=== PATIENT | female | born 2005 | race Caucasian/White ===

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

== ENCOUNTER 2023-03-07 17:00 | Emergency (ER) | payer OTHER, SELFPAY ==
[2023-03-07 17:31] VITALS: BP 98/62; PULSE 95; RESP 18; TEMP 37.2; O2SAT 100; BMI 18.2
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
[2023-03-07] MEDS: Acetaminophen 325 MG TABLET 975 MG PO (19:33)
--- NOTE | 2023-03-07 19:43 | PC.NURSE ---
lac on back of head closed by MD with two dinesh. tylenol given for pain
== END 2023-03-07 20:04 | disposition home or self-care (01) ==
PROVIDERS: Emergency Provider Emergency Medicine
DX: S01.01XA Laceration without foreign body of scalp, initial encounter (principal); W22.8XXA Striking against or struck by other objects, initial encounter; Y93.89 Activity, other specified; Y92.9 Unspecified place or not applicable; Y99.9 Unspecified external cause status
CPT/HCPCS: 12001; 99283; 99284

== ENCOUNTER 2023-05-14 15:38 | Emergency (ER) | payer OTHER, SELFPAY ==
--- NOTE | ~2023-05-14 | US_ITS ---
EXAMINATION: US OBSTETRICAL ULTRASOUND CLINICAL INFORMATION: Lower abdominal pain. 9 weeks . COMPARISON: None available. LMP: 03/08/2023. Gestational age by maternal dates is 9 weeks 4 days. Estimated date of delivery by maternal dates is 12/13/2023. TECHNIQUE: Transabdominal first trimester OB ultrasound FINDINGS: There is a single intrauterine gestational sac with visible yolk sac, embryo/fetus, and cardiac activity. There is no significant subchorionic hemorrhage or hematoma. HR: 170 beats per minute. CRL (crown rump length): 2.7 cm (9 weeks 4 days +/- 4 days). DAPHNE (estimated date of delivery): 12/13/2023 +/- 4 days. MATERNAL ADNEXA: The right maternal ovary measures 2.7 x 1.3 x 1.6 cm. The left maternal ovary measures 2.9 x 2.7 x 1.7 cm. Small 1.5 cm left ovarian cyst. There is no significant maternal adnexal mass. No maternal pelvic ascites. US/US OB <= 14 weeks fetus IMPRESSION: 1. Single intrauterine gestation with ultrasound gestational age of 9 weeks 4 days +/- 4 days. 2. Estimated date of delivery is 12/13/2023 +/- 4 days. 3. No maternal adnexal mass or pelvic ascites.
[2023-05-14 15:47] VITALS: BP 103/62; PULSE 83; RESP 16; TEMP 36.2; BMI 19.2
--- NOTE | 2023-05-14 15:47 | ED_ITS ---
HPI - General Adult General Chief complaint: OB Stated complaint: with abd pain Time Seen by Provider: 05/14/23 16:07 Source: patient Mode of arrival: ambulatory Limitations: no limitations History of Present Illness HPI narrative: Patient is a 17 year old assigned female at with a history of previous high risk , presenting to the emergency department today with lower abdominal pain, nausea, and being approximately 9 weeks . Patient states that over the last 4 days she has had intermittent lower abdominal pain that almost felt more pelvic in nature and nausea. Patient states that she is but has not yet seen her OBGYN. Patient denies any dizziness, lightheadedness, vomiting, fever, chills, blurry vision, double vision, loss of vision, chest pain, difficulty breathing, shortness of breath, back pain, night sweats, pain with urination, increased urinary frequency, increased urinary urgency, blood in her urine or stool, vaginal bleeding, vaginal discharge, syncope or a near syncopal episode, recent trauma or falls, bowel incontinence, bladder incontinence, bowel retention, bladder retention, or any other complaints at this time. Onset (ago): day(s) Location: abdomen Radiation: non-radiation Severity: mild Severity scale (1-10): 3 Pain Consistency: intermittent Relieving factors: none Exacerbating factors: none Associated symptoms: denies other symptoms and nausea/vomiting Treatments prior to arrival: none Related Data Previous Rx's Medication Instructions Recorded metronidazole 500 mg tablet 500 mg PO BID 7 days #14 tabs 05/17/23 Allergies Allergy/AdvReac Type Severity Reaction Status Date / Time No Known Allergies Allergy Verified 05/14/23 15:53 [No Known Allergies*] Review of Systems 2 Constitutional: Constitutional: Reports no additional constitutional complaints, Denies chills, Denies fever(s) and Denies night sweats Eyes: Eyes: Reports no additional eye complaints, Denies blurry vision, Denies change in vision, Denies diplopia, Denies eye discharge, Denies loss of vision and Denies eye pain ENT: Denies dizziness Cardiovascular: Cardiovascular: Reports no additional cardiovascular complaints, Denies chest pain, Denies lightheadedness, Denies Loss of Consciousness and Denies dyspnea Respiratory: Respiratory: Reports no additional respiratory complaints and Denies dyspnea Gastrointestinal: Gastrointestinal: Reports no additional gastrointestinal complaints, Denies abdominal pain, Denies melena, Denies hematochezia, Denies change in bowel habits and Denies change in stool character Genitourinary: Genitourinary: Denies hematuria, Denies urinary frequency, Denies dysuria, Denies urinary incontinence, Denies urinary hesitancy and Denies urinary urgency Musculoskeletal: Musculoskeletal: Reports no additional musculoskeletal complaints, Denies numbness and Denies tingling Neurologic: Denies dizziness, Denies loss of vision, Denies numbness and Denies tingling Psychiatric: Psychiatric: Reports no additional psychiatric complaints Endocrine: Endocrine: Reports no additional endocrine complaints Hematologic/Lymphatic: Hematologic/Lymphatic: Reports no additional hematologic/lymphatic complaints Allergic/Immunologic: Allergic/Immunologic: Reports no additional allergic/immunologic complaints [facility] Past Medical History Attestation statement: The following information was validated with the patient. [facility] Narrative: last (3 years ago) cervix dilated 2cm at 20 wks, was given steroids carried to 39 wks and had an uncomplicated vaginal delivery. Source: old records reviewed and nursing notes reviewed Medical History No pertinent past medical history Date of Last Menstrual Period: 03/08/23 Social History Social History Patient Tobacco Use Status: Never used Tobacco Advance Directives: No Advance Directives Information Provided: No Current occupational status: student Current occupation: right hand Physical Exam ED Vital Signs: Vital Signs - 24 hr 05/14/23 15:47 Temperature 97.1 F Pulse Rate 83 Respiratory Rate 16 Blood Pressure 103/62 Oxygen Delivery Method Room Air BMI result Body Mass Index 19.2 Const General: cooperative, no acute distress, alert and awake Nutritional Appearance: well nourished Orientation/consciousness: patient oriented x3 Limitations: no limitations [facility] Head: Yes normal to inspection and Yes atraumatic Ears: hearing grossly normal bilaterally and external ears normal General nose exam: Normal external nose present, no nasal discharge noted and no epistaxis Face and sinus: Yes normal facial exam, No abrasion and No laceration Mouth: Normal oral and palatal mucosa present, no drooling and no muffled voice Eyes General: appearance normal, both eyes and all related structures Periorbital: periorbital findings normal Eyelids: Yes eyelids normal Conjunctivae: conjunctivae normal Pupils: Equal, round and reactive pupils present EOM: EOMs intact bilaterally Neck Neck: Yes normal visual inspection, Yes full ROM and Yes no lymphadenopathy Chest Chest palpation & inspection: normal inspection of the chest Resp Effort & Inspection: normal respiratory effort and able to speak in complete sentences GI Inspection: Yes normal to inspection Palpation (GI): Soft to palpation, not firm, nontender and no guarding Neuro General: patient oriented x3 and moves all extremities Cranial nerves: Yes Equal, round and reactive pupils present Cognition (Neuro): normal cognition Motor exam (neuro): 5/5 motor strength present throughout Sensory Exam: Normal double simultaneous stimulation for sensation Coordination: [id number] test normal Extrem General: Yes normal to inspection, Yes full ROM and Yes capillary refill normal Psych Appearance: grossly normal Mental Status: mental status grossly normal Affect: normal affect Attitude: cooperative Thought process: Normal thought process present Thought content: Normal thought content present Insight: Good insight present (Psych) Course Course Course Narrative: This is a rapid medical exam: Additional HPI, ROS, PE not included below will be deferred to primary provider. Patient is a 17-year-old 9 weeks female presenting to the emergency department with complaint of lower abdominal and back pain for 4 days. Reports nausea, denies vomiting. States that she was told her previous was high risk which was 3-4 years ago. Has not had ultrasound for this yet. Unsure who she saw for an SERVICE TECHNICIAN with last . Denies any vaginal bleeding or other abnormal vaginal discharge. Plan: labs, UA, u/s Reevaluation(s) Reevaluation #1: 05/17/232005-- called and spoke with patient regarding positive bacterial vaginosis and Hazel vaginal swab results. As she is currently 9 weeks , will send metronidazole to pharmacy. She tells me that she is currently using a topical antifungal that she purchased from the pharmacy and symptoms are improving. Medical Decision Making Medical Decision Making MDM Narrative: Patient is a 17 year old assigned female at with a history of high risk , , presenting to the emergency department today with intermittent abdominal pain and nausea. Patient's physical exam was unremarkable. Patient's blood work was unremarkable, including a WNL HCG for this stage in . Patient's urine showed no acute process. Patient's US showed a normal intrauterine . Patient's CT/NG, BV, and trich swabs are pending. I explained my physical exam findings as well as all test results to the patient. I answered all questions asked by the patient. I stressed the importance of the patient taking her medication as prescribed. I stressed the importance of the patient following up with her primary care provider and her OBGYN. I stressed the importance of the patient returning to the emergency department immediately if her symptoms were to worsen or if she were to develop any dizziness, shortness of breath, difficulty breathing, chest pain, blurry vision, loss of vision, nausea, vomiting, abdominal pain, fever, chills, back pain, or any other complaints. Patient verbalized agreement and understanding with this treatment plan and discharge. Differential Diagnosis Differential Diagnoses: The differential diagnosis associated with the presentation includes ovarian cyst threatened miscarriage missed miscarriage Admission/Observation Consideration of admission/observation: Escalation of care including admission/observation considered Patient would have been admitted to the hospital had her work up had any findings where hospital admission was appropriate and her clinical presentation warranted hospital admission. Lab Data [facility] Lab Attestation statement: I reviewed the patient's lab results. My interpretation of these results are in the [facility] Rationale portion of this note. 05/14/23 17:36 05/14/23 17:36 Labs: Lab Results 05/14/23 05/14/23 Range/Units 17:36 18:34 WBC 10.2 (4.8-10.8) X10*3/uL RBC 4.21 (4.20-5.50) X10*6/uL Hgb 12.4 (12.0-16.0) g/dl Hct 35.3 L (37.0-47.0) % MCV 83.8 (80.0-98.0) fL MCH 29.5 (27.0-33.0) pg MCHC 35.1 H (31.0-35.0) g/dl RDW 12.6 (11.0-16.0) % Plt Count 232 (160-400) X10*3/uL MPV 9.6 (9.4-12.3) fL Immature Gran % (Auto) 0.4 (0.0-0.4) % Neut % (Auto) 75.4 H (45-73) % Lymph % (Auto) 18.3 L (20-40) % [place] % (Auto) 5.3 (2-11) % Eos % (Auto) 0.2 (0-4) % Baso % (Auto) 0.4 (0-2) % Lymph # (Auto) 1.9 (1.2-4.9) X10*3/uL [place] # (Auto) 0.5 (0.1-1.2) X10*3/uL Eos # (Auto) 0.0 (0.0-0.4) X10*3/uL Baso # (Auto) 0.0 (0.0-0.2) X10*3/uL Abs Immat Gran (auto) 0.04 H (0.00-0.03) X10*3/uL Absolute Neuts (auto) 7.7 (2.0-8.3) x10*3/uL Absolute Nucleated RBC 0.000 (0.0-0.012) X10*3/uL Nucleated RBC % (auto) 0.0 (0.0-0.2) /100WBC PT 11.7 (11.1-13.3) SEC INR 1.0 (0.9-1.1) APTT 29.3 (26.0-36.8) SEC Sodium 137 (135-145) mmol/L Potassium 3.6 (3.3-5.1) mmol/L Chloride 103 (96-108) mmol/L Carbon Dioxide 25 (22-29) mmol/L Anion Gap 13 (12-20) BUN 8 L (9-16) mg/dL Creatinine 0.64 (0.5-1.4) mg/dL Estim Creat Clear Calc 102.6 Estimated GFR > 60 Random Glucose 93 (60-115) mg/dL Calcium 9.1 (8.4-10.2) mg/dL Total Bilirubin 0.3 (0.0-1.0) mg/dL AST 11 (5-31) U/L ALT 7 (0-31) U/L Alkaline Phosphatase 53 (39-117) U/L Total Protein 7.0 (6.5-8.0) g/dL Albumin 3.9 (3.5-5.0) g/dL Beta HCG, Quant 133073 mIU/mL Urine Color Yellow Urine Appearance Cloudy Urine pH 7.5 (5.0-9.0) Ur Specific [place] 1.025 (1.005-1.025) Urine Protein Negative (Neg-Trace) mg/dL Urine Glucose (UA) Negative (Negative) mg/dL Urine Ketones Negative (Negative) mg/dL Urine Blood Negative (Negative) Urine Nitrite Negative (Negative) Ur Leukocyte Esterase Negative (Negative) Hazel species DNA Positive A (Negative) Chlam trachomat DNA PCR NOT DETECTED (Not Detect.) COVID-19 (NOMAN) Negative (Negative) COVID-19 Clin Com See Note Gardnerella DNA Probe Positive A (Negative) Influenza Type A (SOSA) Negative (Negative) Influenza Type B (SOSA) Negative (Negative) Influenza A & B Note See Note N.gonorrhoeae DNA (PCR) NOT DETECTED (Not Detect.) Trichomonas DNA Probe Negative (Negative) Blood Type B Positive Independent Interpretation I performed an independent interpretation of an: Ultrasound Interpretation: My interpretation is in agreement with the radiologist's impression of this imaging study. - EXAMINATION: US OBSTETRICAL ULTRASOUND CLINICAL INFORMATION: Lower abdominal pain. 9 weeks . COMPARISON: None available. LMP: 03/08/2023. Gestational age by maternal dates is 9 weeks 4 days. Estimated date of delivery by maternal dates is 12/13/2023. TECHNIQUE: Transabdominal first trimester OB ultrasound FINDINGS: There is a single intrauterine gestational sac with visible yolk sac, embryo/fetus, and cardiac activity. There is no significant subchorionic hemorrhage or hematoma. HR: 170 beats per minute. CRL (crown rump length): 2.7 cm (9 weeks 4 days +/- 4 days). DAPHNE (estimated date of delivery): 12/13/2023 +/- 4 days. MATERNAL ADNEXA: The right maternal ovary measures 2.7 x 1.3 x 1.6 cm. The left maternal ovary measures 2.9 x 2.7 x 1.7 cm. Small 1.5 cm left ovarian cyst. There is no significant maternal adnexal mass. No maternal pelvic ascites. US/US OB <= 14 weeks fetus IMPRESSION: 1. Single intrauterine gestation with ultrasound gestational age of 9 weeks 4 days +/- 4 days. 2. Estimated date of delivery is 12/13/2023 +/- 4 days. 3. No maternal adnexal mass or pelvic ascites. Dictated By: Maureen Stockton MD Signed By: Electronically signed by Maureen Stockton MD 05/14/23 4849 Radiology Impression Discussion of test interpretation with radiology: I have reviewed the radiologist's reading. Discharge Plan Discharge Clinical Impression: Patient Disposition: Home, Self-Care Instructions: (ED) Additional Instructions: Follow up with your primary care provider and your OBGYN. Return to the emergency department immediately if your symptoms worsen or if you develop any dizziness, shortness of breath, difficulty breathing, chest pain, blurry vision, loss of vision, nausea, vomiting, abdominal pain, fever, chills, back pain, or any other complaints. Prescriptions: New metronidazole 500 mg tablet 500 mg PO BID 7 Days Qty: 14 0RF Referrals: [facility] – [place] Family Medicine [Provider Group] (Call to establish and follow up with your primary care provider. If you already have a primary care provider, please follow up with them.) [facility] – [place] [facility] [Provider Group] (Call to establish and follow up with your primary care provider. If you already have a primary care provider, please follow up with them.) [facility] – [place] Primary Care,[facility] [Provider Group] (Call to establish and follow up with your primary care provider. If you already have a primary care provider, please follow up with them.) Discharge Date/Time: 05/14/23 18:56 Print Language: Niuean
--- NOTE | 2023-05-14 15:53 | PC.NURSE ---
pts hands cold, unable to obtain O2 sat at this time, pt sitting upright in triage chair, skin PWD, appropriate color, no cyanosis, no diff breathing.
[2023-05-14 17:45] LABS: MANUAL DIFF FLAG NO
[2023-05-14 17:49] LABS: Basophils Percent Auto 0.4 % (0-2); Eosinophils Percent Auto 0.2 % (0-4); Hematocrit 35.3 % (37.0-47.0); Hemoglobin 12.4 g/dl (12.0-16.0); Imm Gran Abs Auto 0.04 X10*3/uL (0.00-0.03); Imm Gran Pct Auto 0.4 % (0.0-0.4); Lymphocytes Absolute Auto 1.9 X10*3/uL (1.2-4.9); Lymphocytes Percent Auto 18.3 % (20-40); Mean Corpuscular HGB Conc 35.1 g/dl (31.0-35.0); Mean Corpuscular Hemoglobin 29.5 pg (27.0-33.0); Mean Corpuscular Volume 83.8 fL (80.0-98.0); Mean Platelet Volume 9.6 fL (9.4-12.3); Monocytes Absolute Auto 0.5 X10*3/uL (0.1-1.2); Monocytes Percent Auto 5.3 % (2-11); Neutrophils Absolute Auto 7.7 x10*3/uL (2.0-8.3); Neutrophils Percent Auto 75.4 % (45-73); Platelet Count 232 X10*3/uL (160-400); Red Blood Count 4.21 X10*6/uL (4.20-5.50); Red Cell Distribution Width 12.6 % (11.0-16.0); White Blood Count 10.2 X10*3/uL (4.8-10.8)
[2023-05-14 17:56] LABS: Prothrombin Time 11.7 SEC (11.1-13.3)
[2023-05-14 17:58] LABS: Partial Thromboplastin Time 29.3 SEC (26.0-36.8)
[2023-05-14 18:02] LABS: Alanine Aminotransferase 7 U/L (0-31); Albumin Level 3.9 g/dL (3.5-5.0); Alkaline Phosphatase 53 U/L (39-117); Anion Gap 13 (12-20); Aspartate Amino Transferase 11 U/L (5-31); Bilirubin Total 0.3 mg/dL (0.0-1.0); Blood Urea Nitrogen 8 mg/dL (9-16); Calcium 9.1 mg/dL (8.4-10.2); Carbon Dioxide 25 mmol/L (22-29); Chloride 103 mmol/L (96-108); Creatinine Clr Calc Pharmacy 102.6; Estimated Glomerular Filt Rate > 60; Glucose Random 93 mg/dL (60-115); Potassium 3.6 mmol/L (3.3-5.1); Sodium 137 mmol/L (135-145)
[2023-05-14 18:08] LABS: COVID-19 Test Negative (Negative); IDNOW Serial# 152EDE1D
[2023-05-14 18:09] LABS: IDNOW Serial# 08D9AD1C; Influenza A Negative (Negative); Influenza B2 Negative (Negative)
[2023-05-14 18:43] LABS: Appearance Urine Cloudy; Color Urine Yellow; Glucose Urine UA Negative (Negative); Leukocyte Esterase Urine Negative (Negative); Nitrite Urine Negative (Negative); PH 7.5 (5.0-9.0); Specific Gravity - Urine 1.025 (1.005-1.025); Urine Blood Negative (Negative); Urine Ketones Negative (Negative); Urine Protein Negative (Neg-Trace)
[2023-05-15 02:56] LABS: CT PCR NOT DETECTED (Not Detect.); NG PCR NOT DETECTED (Not Detect.)
[2023-05-15 12:01] LABS: BV Int Neg Control Negative (Negative); BV Int Pos Control Positive (Positive)
== END 2023-05-14 18:56 | disposition home or self-care (01) ==
PROVIDERS: Physician Assistant Medical; Registered Nurse Emergency; Emergency Provider Emergency Medicine Emergency Medical Services
DX: O98.811 Other maternal infectious and parasitic diseases complicating pregnancy, first trimester (principal); B37.31 Acute candidiasis of vulva and vagina; O26.891 Other specified pregnancy related conditions, first trimester; R10.30 Lower abdominal pain, unspecified; Z3A.09 9 weeks gestation of pregnancy; Z11.52 Encounter for screening for COVID-19
CPT/HCPCS: 0353U; 36415; 76801; 80053; 81003; 84702; 85025; 85610; 85730; 86900; 86901; 87480; 87502; 87510; 87635; 87660; 99282; 99284

== ENCOUNTER 2023-06-09 15:52 | Emergency (ER) | payer OTHER, SELFPAY ==
[2023-06-09 16:04] VITALS: BP 99/61; PULSE 112; RESP 16; TEMP 37.1; O2SAT 100; BMI 18.9
--- NOTE | 2023-06-09 16:04 | ED_ITS ---
HPI - General Adult General Chief complaint: Upper Respiratory Symptoms Stated complaint: headache, trouble sleeping, fatigue Time Seen by Provider: 06/09/23 17:13 Source: patient Mode of arrival: ambulatory Limitations: no limitations History of Present Illness HPI narrative: This is a 18-year-old female currently 13 weeks with a due date of 12/13/2023 presenting with fever, fatigue, malaise, headache, myalgias, sore throat that started yesterday. Also reporting intermittent nausea and lower back pain which is normal for her . Denies chest pain, shortness of breath, vision changes, dizziness, weakness, abdominal pain. No known sick contacts Related Data Previous Rx's Medication Instructions Recorded metronidazole 500 mg tablet 500 mg PO BID 7 days #14 tabs 05/17/23 amoxicillin 500 mg tablet 500 mg PO BID 10 days #20 tabs 06/09/23 Allergies Allergy/AdvReac Type Severity Reaction Status Date / Time No Known Allergies Allergy Verified 05/14/23 15:53 [No Known Allergies*] Review of Systems Review of Systems: Yes all other systems are reviewed and are negative [facility] Past Medical History Attestation statement: The following information was validated with the patient. Source: old records reviewed and nursing notes reviewed Medical History No pertinent past medical history Social History Social History Patient Tobacco Use Status: Never used Tobacco Advance Directives: No Advance Directives Information Provided: No Current occupational status: student Current occupation: right hand Physical Exam ED Vital Signs: Vital Signs - 24 hr 06/09/23 16:04 Temperature 98.8 F Pulse Rate 112 H Respiratory Rate 16 Blood Pressure 99/61 Pulse Oximetry 100 Oxygen Delivery Method Room Air BMI result Body Mass Index 18.9 Slight tachycardia likely secondary to viral illness or strep throat Appearance: Alert.? Oriented X3.? No acute distress.? Head: Normocephalic, atraumatic, no step-offs or deformities Eyes: Pupils equal, round and reactive to light.? ENT: Pharynx with erythema no edema, exudate, abscess. Uvula midline. Speaking in full sentences controlling secretions well.? Neck: Normal inspection.? Neck supple.? CVS: Normal heart rate and rhythm.? Pulses normal.? Respiratory: No respiratory distress.? Breath sounds normal.? Abdomen: Soft and nontender.? abdomen. Skin: Skin warm and dry.? Normal skin color.? Normal skin turgor.? Extremities: No lower extremity edema.? No calf ttp. 5/5 strength to bilateral upper and lower extremities Neuro: Oriented X 3.? No motor deficit.? No sensory deficit. CN 2-12 intact Course Course Course Narrative: This is a rapid medical exam: Additional HPI, ROS, PE not included below will be deferred to primary provider. Patient is a 18-year-old [id number] 13 weeks , DAPHNE 12/13/23, presenting to the ED with complaint of 4/10 headache, fatigue, sweats/chills since yesterday. Mild nausea. Plan: strep and viral swabs Reevaluation(s) Reevaluation #1: Patient noted to be strep positive patient will be sent amoxicillin which is safe in . Flu/COVID/RSV pending Time: 17:27 Reevaluation #2: COVID positive as well. Educated patient on diagnosis and treatment plan, answered all question, patient verbalizes understanding. At this time patient will be discharged home, advised to return with new or worsening symptoms. Educated on worrisome signs and symptoms and when to return. At this time I feel comfortable discharge home. Time: 17:35 Medical Decision Making Medical Decision Making [facility] Narrative: 18-year-old female currently presents with viral symptoms since yesterday and sore throat. Physical exam erythematous posterior pharynx. Patient well-appearing. History and physical exam concerning for strep versus viral illness. Headache likely secondary to viral illness unlikely intracranial hemorrhage, stroke, posterior stroke, meningitis, encephalitis. Fever also likely secondary to viral illness or strep throat. Low back pain and nausea are normal in her , nothing new, no acute findings no signs of cauda equina, epidural abscess, cord compression. No signs of acute abdomen. No abdominal pain. Plan at this time viral test, strep test. Differential Diagnosis Differential Diagnoses: The differential diagnosis associated with the presentation includes History and physical exam concerning for strep versus viral illness. Headache likely secondary to viral illness unlikely intracranial hemorrhage, stroke, posterior stroke, meningitis, encephalitis. Fever also likely secondary to viral illness or strep throat. Low back pain and nausea are normal in her , nothing new, no acute findings no signs of cauda equina, epidural abscess, cord compression. No signs of acute abdomen. No abdominal pain. Admission/Observation Consideration of admission/observation: Escalation of care including admission/observation considered unlikey Lab Data MDM Lab Attestation statement: I reviewed the patient's lab results. Labs: Lab Results 06/09/23 Range/Units 16:48 Influenza Type A (PCR) NEGATIVE (Negative) Influenza Type B (PCR) NEGATIVE (Negative) RSV RNA Qual (PCR) NEGATIVE (Negative) SARS-CoV-2 RNA (RT-PCR) POSITIVE A (Negative) S. pyogenes GrpA SOSA Positive A (Negative) External Record Review External record reviewed: Inpatient record, Office record, Outpatient record, Prior outpatient labs, Prior outpatient radiology and Primary care record Tests considered The following testing was considered but not selected: No signs of abscess no need for ct w/ con No abd pain no need for abd us or imaging Non toxic no need for labs Back pain unlikely uti Discharge Plan Discharge Clinical Impression: Strep throat, COVID-19 Patient Disposition: Home, Self-Care Instructions: Strep Throat (ED), COVID-19 (Coronavirus Disease 2019) (ED) Additional Instructions: Take your medications as prescribed. If you were prescribed antibiotics today, it is important that you take your medication to their entirety, do not skip any doses, do not finish them early. Today you tested positive for COVID-19. Take Ibuprofen or Tylenol as needed for fevers or body aches. Quarantine for 5 days and ensure you wear a mask. After 5 days you should wear a mask for 5 days after that. Practice social distancing and good hand hygiene. Drink plenty of fluids. Follow-up with your primary care provider this week. Return to the emergency department with new or worsening symptoms. In case of emergency call 911 You can purchase a pulse oximeter from your local pharmacy or grocery store, and monitor your oxygen saturation if it goes below 94% you should return to the emergency department for further evaluation. Prescriptions: New amoxicillin 500 mg tablet 500 mg PO BID 10 Days Qty: 20 0RF No Action metronidazole 500 mg tablet 500 mg PO BID 7 Days Qty: 14 0RF Referrals: Physician,Unknown J [Primary Care Provider] - Stand Alone Forms: Work/School Release
[2023-06-09 17:02] LABS: IDNOW Serial# 6674DD1D; Strep A Nucleic Acid Positive (Negative)
[2023-06-09 17:32] LABS: Influenza A PCR NEGATIVE (Negative); Influenza B PCR NEGATIVE (Negative); Resp Syncy Virus RNA Qual PCR NEGATIVE (Negative); SARS COV2 PCR INHOUSE POSITIVE (Negative)
== END 2023-06-09 17:53 | disposition home or self-care (01) ==
PROVIDERS: Registered Nurse Emergency; Emergency Provider Emergency Medicine
DX: O98.511 Other viral diseases complicating pregnancy, first trimester (principal); U07.1 COVID-19; Z3A.13 13 weeks gestation of pregnancy
CPT/HCPCS: 0241U; 87651; 99282; 99283

== ENCOUNTER 2023-08-15 09:03 | Emergency (ER) | payer OTHER, SELFPAY ==
[2023-08-15 09:18] VITALS: BP 98/64; PULSE 120; RESP 18; TEMP 37.8; O2SAT 97; BMI 20.8
[2023-08-15 10:18] LABS: IDNOW Serial# 58CA691E; Strep A Nucleic Acid Negative (Negative)
--- NOTE | 2023-08-15 10:45 | ED_ITS ---
HPI - General Adult General Chief complaint: Upper Respiratory Symptoms Stated complaint: sore throat congestion Time Seen by Provider: 08/15/23 10:29 Source: patient Mode of arrival: ambulatory Limitations: no limitations History of Present Illness HPI narrative: Patient is a 18-year-old female DAPHNE [birth year] presenting to the emergency department with complaint a few days of sore throat, then body aches and chills, subjective fever which began last night. States her son recently was treated for strep throat. Did not check temp with a thermometer. Has not taken any paew-eoz-tstazge medications at home for her symptoms. Also complains of nausea only during coughing episodes. States does not have any medication for nausea at home. MD complaint: sore throat, body aches Onset (ago): day(s) Severity: mild Quality: burning Associated symptoms: fever/chills Treatments prior to arrival: none Related Data Previous Rx's ?Medication ?Instructions ?Recorded metronidazole 500 mg tablet 500 mg PO BID 7 days #14 tabs 05/17/23 amoxicillin 500 mg tablet 500 mg PO BID 10 days #20 tabs 06/09/23 ondansetron 4 mg disintegrating 4 mg PO Q8H PRN nausea and 08/15/23 tablet vomiting #10 tabs Allergies Allergy/AdvReac Type Severity Reaction Status Date / Time No Known Allergies Allergy Verified 08/15/23 09:19 [No Known Allergies*] Review of Systems Review of Systems: As per HPI. Yes all other systems are reviewed and are negative Constitutional: Constitutional: Reports as per HPI [facility] Past Medical History Medical History No pertinent past medical history Social History Social History Patient Tobacco Use Status: Never used Tobacco Advance Directives: No Advance Directives Information Provided: No Do you have a plan to hurt others: No Plan Current occupational status: student Current occupation: right hand Physical Exam ED Vital Signs: Vital Signs - 24 hr 08/15/23 09:18 08/15/23 11:37 Temperature 100.1 F 98.7 F Pulse Rate 120 H 105 H Respiratory Rate 18 20 Blood Pressure 98/64 104/67 Pulse Oximetry 97 98 Oxygen Delivery Method Room Air Room Air BMI result Body Mass Index 20.8 Vital signs have been reviewed and appear to be correct. Blood pressure normal. Heart rate ttachycardic. Respiratory rate normal. Temperature normal. Oxygen saturation normal. Const General: cooperative, healthy appearing and no acute distress Orientation/consciousness: oriented to person, oriented to place, oriented to time and patient oriented x3 Limitations: no limitations HENMT Head: Yes normocephalic and Yes atraumatic Ears: external ears normal, TM's normal bilaterally and EAC's normal General nose exam: Normal external nose present Face and sinus: Yes face symmetric Mouth: Normal oral and palatal mucosa present, oropharynx normal and moist mucous membranes Throat: Yes posterior oropharynx normal, Yes tonsils normal, Yes uvula midline, No peritonsillar mass and No uvular edema Eyes Pupils: Equal, round and reactive pupils present Neck Neck: Yes normal visual inspection, Yes full ROM, Yes no lymphadenopathy, Yes no meningeal signs and Yes supple Resp Effort & Inspection: normal respiratory effort and able to speak in complete sentences Auscultation: clear to auscultation bilaterally Cardio Rate: regular rate Rhythm: regular rhythm Heart sounds: S1 normal heart sound present and S2 normal heart sound present GI Palpation (GI): Soft to palpation and nontender Auscultation: normoactive bowel sounds General: Yes no CVA tenderness Back/Spine/Pelvis Back: no CVA tenderness Skin General skin exam: elasticity normal and turgor normal Neuro General: oriented to person, oriented to place, oriented to time, patient oriented x3, moves all extremities, no meningeal signs, no focal motor deficits and CN's II-XI intact bilaterally Cranial nerves: Yes Equal, round and reactive pupils present Cognition (Neuro): normal cognition Extrem General: Yes full ROM, Yes no pedal edema and Yes no calf tenderness Psych Mental Status: mental status grossly normal Affect: normal affect Thought process: Normal thought process present Medical Decision Making Medical Decision Making MDM Narrative: Patient is a 18-year-old female DAPHNE [birth year] presenting to the emergency department with complaint a few days of sore throat, then body aches and chills, subjective fever which began last night. On exam patient is awake, A+Ox3, tachycardic, likely due to , VS otherwise WNL, afebrile, normal neurological exam without focal deficits, physical exam findings as above. Given reported symptoms and physical exam findings, initial differential includes strep pharyngitis, viral illness, COVID, flu, RSV, otitis media. Viral and strep swabs negative. Physical exam findings unremarkable. Heart rate 158. Discussed with patient that symptoms are likely due to viral illness which will resolve on its own with time and rest. Advised patient to ensure adequate fluid intake. Will prescribe Zofran for intermittent nausea. Instr ucted patient to follow-up with PCP. Return precautions discussed at bedside. Patient verbalized understanding of and agreement with plan. Differential Diagnosis Differential Diagnoses: The differential diagnosis associated with the presentation includes As per [facility]. Lab Data [facility] Lab Attestation statement: I reviewed the patient's lab results. As per [facility]. Labs: Lab Results 08/15/23 Range/Units 10:02 Influenza Type A (PCR) NEGATIVE (Negative) Influenza Type B (PCR) NEGATIVE (Negative) RSV RNA Qual (PCR) NEGATIVE (Negative) SARS-CoV-2 RNA (RT-PCR) NEGATIVE (Negative) S. pyogenes GrpA SOSA Negative (Negative) External Record Review External record reviewed: Inpatient record, Office record and Outpatient record Prescription Management I considered prescription management with: Other Discharge Plan Discharge Clinical Impression: Viral infection Patient Disposition: Home, Self-Care Instructions: Viral Syndrome (ED) Additional Instructions: You were evaluated in the emergency department today for sore throat and cough. Your Covid, flu,RSV and strep tests were all negative. Your symptoms are likely related to a viral illness which will resolve on its own with time and rest. You should ensure adequate fluid intake, and can use Tylenol 650 mg every 6 hours as needed for fever or discomfort. You are being prescribed Zofran which you can use every 8 hours as needed for nausea. Please follow-up with your primary care provider this week. Return to the emergency department if you develop chest pain, worsening shortness of breath, difficulty swallowing, fever 100.4? F or greater or any other concerning symptoms. Prescriptions: New ondansetron 4 mg tablet,disintegrating 4 mg PO Q8H PRN (Reason: nausea and vomiting) Qty: 10 0RF No Action amoxicillin 500 mg tablet 500 mg PO BID 10 Days Qty: 20 0RF metronidazole 500 mg tablet 500 mg PO BID 7 Days Qty: 14 0RF Print Language: Urdu
[2023-08-15 10:47] LABS: Influenza A PCR NEGATIVE (Negative); Influenza B PCR NEGATIVE (Negative); Resp Syncy Virus RNA Qual PCR NEGATIVE (Negative); SARS COV2 PCR INHOUSE NEGATIVE (Negative)
[2023-08-15 11:37] VITALS: BP 104/67; PULSE 105; RESP 20; TEMP 37.1; O2SAT 98
--- NOTE | 2023-08-15 13:38 | PC.NURSE ---
heart rate 158 via doppler
[2023-08-15 13:44] VITALS: BP 91/53; PULSE 109; RESP 14; TEMP 37.4; O2SAT 98
== END 2023-08-15 13:45 | disposition home or self-care (01) ==
PROVIDERS: Emergency Provider Emergency Medicine
DX: B34.9 Viral infection, unspecified (principal); J02.9 Acute pharyngitis, unspecified; R68.83 Chills (without fever)
CPT/HCPCS: 0241U; 87651; 99283

== ENCOUNTER 2023-11-06 02:07 | Emergency (ER) | payer OTHER, SELFPAY ==
--- NOTE | 2023-11-06 | ECG_ITS ---
Test Reason : DYSPNEA Blood Pressure : / mmHG Vent. Rate : 094 BPM Atrial Rate : 094 BPM P-R Int : 126 ms QRS Dur : 072 ms QT Int : 326 ms P-R-T Axes : 050 054 012 degrees QTc Int : 407 ms Normal sinus rhythm with sinus arrhythmia Normal ECG No previous ECGs available Referred By: Generic ED Physician Electronically Signed By:SUNITHA SMITH
--- NOTE | ~2023-11-06 | CT_ITS ---
EXAMINATION: CT ANGIOGRAM OF THE CHEST WITH AND WITHOUT CONTRAST (CT PULMONARY ANGIOGRAM FOR PE) CLINICAL INFORMATION: Reason for Exam 34wk , SOB, elevated D-dimer R/O PE COMPARISON: None available. TECHNIQUE: Prior to contrast administration, noncontrast localization images were obtained. Subsequently, multidetector volumetric imaging was performed from the thoracic inlet to below the diaphragms following the administration of 65 mL Omnipaque 350 intravenous contrast. No contrast reaction reported Sagittal, coronal, and MIP oblique sagittal reformatted images were obtained on the CT workstation, uploaded to PACS, and reviewed. This CT examination was performed using dose optimization techniques as appropriate, variously including the following: *Automated exposure control *Adjustment of mA and/or kV according to patient size (this includes techniques or standardized protocols for targeted exams where dose is matched to indication/reason for exam; i.e. extremities or head) *Use of iterative reconstruction technique Total exam dose-length product 122 mGy-cm FINDINGS: QUALITY OF STUDY/CONTRAST BOLUS: Satisfactory. PULMONARY ARTERIES: No pulmonary emboli. THORACIC AORTA: Limited evaluation of the ascending aorta due to motion artifact. Aorta appears normal in caliber. LUNG: Limited detailed evaluation in some regions due to motion artifact. No regions of consolidation. PLEURA: No pleural effusion or pneumothorax. MEDIASTINUM: The visualized thyroid gland is unremarkable. There are subcentimeter mediastinal lymph nodes within the range of normal variation. Cardiac size is within normal limits; no pericardial effusion. No evidence of septal bowing or right heart strain. CORONARY ARTERY CALCIFICATION: None visualized on this study. CHEST WALL/AXILLA: No axillary or internal mammary lymphadenopathy. OSSEOUS STRUCTURES: No acute or suspicious osseous abnormality. UPPER ABDOMEN: Unremarkable. No reflux of contrast into the hepatic veins to suggest elevated right heart pressures. CT/CT angio chest PE protocol IMPRESSION: No pulmonary embolus identified. VTE: negative.
[2023-11-06 02:12] VITALS: BP 112/69; PULSE 97; RESP 16; TEMP 36.3; O2SAT 98; BMI 22.7
--- NOTE | 2023-11-06 02:29 | ED.SOB ---
HPI - SOB/Dyspnea General Chief Complaint: Dyspnea Stated Complaint: trouble breathing Time Seen by Provider: 11/06/23 04:58 Source: patient Mode of arrival: ambulatory Limitations: no limitations History of Present Illness ED Provider: Dr. Jeremy La HPI Narrative: 18-year-old female , 34 weeks with DAPHNE of 12/13/[birth year]23 delivering at [facility] who presents emergency department for evaluation of shortness of breath. The patient states that approximately 1 hour prior to coming to the emergency department she had a sudden onset of shortness of breath. She describes the sensation as having difficulty taking a deep breath in. She denied chest pain associated with his shortness of breath sensation. Patient denied being ill with any respiratory symptoms such as fever, chills, rhinorrhea, sore throat, cough. She denied nausea, vomiting or diarrhea. She denied abdominal pain or cramping. She states that she she can feel her baby kicking and this is not decreased in any way since the onset of her symptoms. She denied vaginal discharge or bleeding. Related Data Previous Rx's ?Medication ?Instructions ?Recorded metronidazole 500 mg tablet 500 mg PO BID 7 days #14 tabs 05/17/23 amoxicillin 500 mg tablet 500 mg PO BID 10 days #20 tabs 06/09/23 ondansetron 4 mg disintegrating 4 mg PO Q8H PRN nausea and 08/15/23 tablet vomiting #10 tabs Allergies Allergy/AdvReac Type Severity Reaction Status Date / Time No Known Allergies Allergy Verified 11/06/23 02:12 [No Known Allergies*] Review of Systems Review of Systems: Yes all other systems are reviewed and are negative [facility] Past Medical History [facility] Narrative: Social history: She denies tobacco, alcohol and drug use. Medical History No pertinent past medical history Social History Social History Patient Tobacco Use Status: Never used Tobacco Advance Directives: No Advance Directives Information Provided: No Do you have a plan to hurt others: No Plan Current occupational status: student Current occupation: right hand Physical Exam Vital Signs: Vital Signs: Last Vital Signs Temp 98.9 F 11/06/23 07:02 Pulse 101 H 11/06/23 07:02 Resp 16 11/06/23 07:02 BP 99/56 L 11/06/23 07:02 Pulse Ox 96 11/06/23 07:02 O2 Del Method Room Air 11/06/23 07:02 BMI result Body Mass Index 22.7 Vital signs revealed an elevated heart rate of 101 otherwise unremarkable Exam: General: Awake, alert in no distress Head: Normocephalic, atraumatic EENT: PERRL, Lids normal, sclera normal, conjunctiva normal, nose normal , ears normal, throat without erythema or exudates Neck: Supple, no adenopathy Lung: breath sounds symmetric, no wheezing, rales or rhonchi Chest: symmetric movement, nontender Heart: regular rate and rhythm, normal S1, S2 no murmurs or rubs Abdomen: soft, gravid uterus, no abdominal tenderness, normoactive bowel sounds Back: no vertebral tenderness, no CVAT Extremities: no deformities, moves all extremities symmetrically Neuro: Awake, alert, oriented, normal speech, cranial nerves intact, moves all extremities symmetrically Psych: Pleasant, cooperative Medications Administered Discontinued Medications Generic Name Dose Route Start Last Admin Trade Name Freq PRN Reason Stop Dose Admin Sodium Chloride 1,000 mls @ 999 mls/hr 11/06/23 04:07 11/06/23 04:43 Ns IV 11/06/23 05:07 999 mls/hr .Q1H1M STA Administration Iohexol 65 ml 11/06/23 04:47 11/06/23 04:47 Iohexol 350 Mg/Ml 100 Ml Infus..Btl IV 11/06/23 04:48 65 ml ONCE ONE Administration Medical Decision Making Medical Decision Making MDM Narrative: 18-year-old female , 34 weeks with DAPHNE of 12/13/2023 delivering at [facility] who presents emergency department for evaluation of shortness of breath. The patient states that approximately 1 hour prior to coming to the emergency department she had a sudden onset of shortness of breath. She describes the sensation as having difficulty taking a deep breath in. She had no other concerning associated symptoms, she is having no abdominal pain, cramping, vaginal discharge. Vital signs did reveal an elevated heart rate of 101 otherwise unremarkable. Patient's exam was unremarkable and consistent with her . Differential diagnosis: ?Includes but is not limited to pneumonia, pleurisy, pulmonary embolism, costochondritis, musculoskeletal pain, preeclampsia, labor, electrolyte abnormalities, anemia Following evaluation was ordered: CBC, CMP, D-dimer, PTT, urinalysis, 12 EKG, COVID-19, influenza, RSV CT pulmonary angiogram PE protocol Patient was initially treated with the following: Normal saline x1 L, Tylenol 650 mg orally Course: 06:49 My interpretation patient's laboratory evaluation is as follows: Normocytic anemia with an H&H of 9.7 and 29.1. CMP was normal. COVID-19, influenza, RSV were negative. D-dimer was elevated 240. Urinalysis was negative Patient's [address] pulmonary angiogram revealed no acute findings. This time I do not have a clear etiology for the patient's shortness of breath but it may be secondary to musculoskeletal pain or pleurisy. Patient was advised to take Tylenol 2 tablets every 6 hours as needed for discomfort. I did tell her that if her symptoms got worse she should go to [facility] for evaluation given that she is 34 weeks . The patient understood this discussion and was discharged home Admission/Observation Consideration of admission/observation: Escalation of care including admission/observation considered Lab Data MDM Lab Attestation statement: I reviewed the patient's lab results. 11/06/23 02:45 11/06/23 02:45 Labs: Lab Results 11/06/23 11/06/23 Range/Units 02:29 02:45 WBC 10.3 (4.8-10.8) X10*3/uL RBC 3.63 L (4.20-5.50) X10*6/uL Hgb 9.7 L D (12.0-16.0) g/dl Hct 29.1 L (37.0-47.0) % MCV 80.2 (80.0-98.0) fL MCH 26.7 L (27.0-33.0) pg MCHC 33.3 (31.0-35.0) g/dl RDW 13.3 (11.0-16.0) % Plt Count 215 (160-400) X10*3/uL MPV 10.4 (9.4-12.3) fL Immature Gran % (Auto) 0.7 H (0.0-0.4) % Neut % (Auto) 68.6 (45-73) % Lymph % (Auto) 21.9 (20-40) % [place] % (Auto) 8.3 (2-11) % Eos % (Auto) 0.3 (0-4) % Baso % (Auto) 0.2 (0-2) % Lymph # (Auto) 2.3 (1.2-4.9) X10*3/uL [place] # (Auto) 0.9 (0.1-1.2) X10*3/uL Eos # (Auto) 0.0 (0.0-0.4) X10*3/uL Baso # (Auto) 0.0 (0.0-0.2) X10*3/uL Abs Immat Gran (auto) 0.07 H (0.00-0.03) X10*3/uL Absolute Neuts (auto) 7.1 (2.0-8.3) x10*3/uL Absolute Nucleated RBC 0.000 (0.0-0.012) X10*3/uL Nucleated RBC % (auto) 0.0 (0.0-0.2) /100WBC PT 10.9 L (11.1-13.3) SEC INR 0.9 (0.9-1.1) APTT 26.3 (26.0-36.8) SEC D-Dimer High Sensitivty 240 NG/ML Sodium 137 (135-145) mmol/L Potassium 3.4 (3.3-5.1) mmol/L Chloride 104 (96-108) mmol/L Carbon Dioxide 22 (22-29) mmol/L Anion Gap 14 (12-20) BUN 9 (9-16) mg/dL Creatinine 0.64 (0.5-1.4) mg/dL Estim Creat Clear Calc 105.7 Estimated GFR > 60 Random Glucose 103 (60-115) mg/dL Calcium 9.4 (8.4-10.2) mg/dL Magnesium 1.8 (1.6-2.6) mg/dL Total Bilirubin 0.3 (0.0-1.0) mg/dL AST 10 (5-31) U/L ALT 8 (0-31) U/L Alkaline Phosphatase 84 (39-117) U/L Total Protein 6.7 (6.5-8.0) g/dL Albumin 3.5 (3.5-5.0) g/dL Lipase 18 (8-78) U/L Urine Color Yellow Urine Appearance Cloudy Urine pH 6.5 (5.0-9.0) Ur Specific [place] 1.020 (1.005-1.025) Urine Protein Negative (Neg-Trace) mg/dL Urine Glucose (UA) Negative (Negative) mg/dL Urine Ketones Trace (Negative) mg/dL Urine Blood Negative (Negative) Urine Nitrite Negative (Negative) Ur Leukocyte Esterase Negative (Negative) COVID-19 (NOMAN) Negative (Negative) COVID-19 Clin Com See Note Influenza Type A (SOSA) Negative (Negative) Influenza Type B (SOSA) Negative (Negative) Influenza A & B Note See Note Independent Interpretation I performed an independent interpretation of an: EKG Interpretation: My independent interpretation patient's 12 EKG is as follows: Normal sinus rhythm rate 94, normal MA interval, QRS duration QTC interval, no ST segment elevation, no ST segment depression, no significant T-wave abnormalities-this is a normal EKG. Radiology Impression Discussion of test interpretation with radiology: I have reviewed the radiologist's reading. Radiologist Impression: CT angio chest PE protocol IMPRESSION: No pulmonary embolus identified. VTE: negative. Dictated By: Tal Bray MD Chronic Conditions Patient?s care impacted by: Other (Third trimester ) Discharge Plan Discharge Clinical Impression: Acute dyspnea Patient Disposition: Home, Self-Care Additional Instructions: Your blood work was consistent with mild anemia, this is most likely secondary to your . Continue taking your vitamins as prescribed. Your COVID-19, influenza and RSV tests were negative. The CT pulmonary angiogram of your lungs did not reveal any blood clots or any abnormalities of your lungs to describe your shortness of breath. At this time I suspect that it may be due to inflammation of the chest wall muscles or joints. Take Tylenol (acetaminophen) 500 mg pills, 2 pills every 6 hours as needed for pain or fever. Follow-up with your doctor in 2 days. Please return to the emergency department if your symptoms get worse or if you develop any symptoms that are concerning to you. If your symptoms get worse, I recommend that you go to [facility] [place] since we do not deliver baby's at this hospital and we do not have OBGYN physicians that can evaluate you and the baby's when you are in your 3rd trimester. Prescriptions: No Action amoxicillin 500 mg tablet 500 mg PO BID 10 Days Qty: 20 0RF metronidazole 500 mg tablet 500 mg PO BID 7 Days Qty: 14 0RF ondansetron 4 mg tablet,disintegrating 4 mg PO Q8H PRN (Reason: nausea and vomiting) Qty: 10 0RF Interventions: ED Discharge Assessment Last Done: 11/06/23 07:02 Discharge Date/Time: 11/06/23 07:04 Print Language: Kazakh
[2023-11-06 02:50] LABS: MANUAL DIFF FLAG NO
[2023-11-06 02:56] LABS: Basophils Percent Auto 0.2 % (0-2); Eosinophils Percent Auto 0.3 % (0-4); Hematocrit 29.1 % (37.0-47.0); Hemoglobin 9.7 g/dl (12.0-16.0); Imm Gran Abs Auto 0.07 X10*3/uL (0.00-0.03); Imm Gran Pct Auto 0.7 % (0.0-0.4); Lymphocytes Absolute Auto 2.3 X10*3/uL (1.2-4.9); Lymphocytes Percent Auto 21.9 % (20-40); Mean Corpuscular HGB Conc 33.3 g/dl (31.0-35.0); Mean Corpuscular Hemoglobin 26.7 pg (27.0-33.0); Mean Corpuscular Volume 80.2 fL (80.0-98.0); Mean Platelet Volume 10.4 fL (9.4-12.3); Monocytes Absolute Auto 0.9 X10*3/uL (0.1-1.2); Monocytes Percent Auto 8.3 % (2-11); Neutrophils Absolute Auto 7.1 x10*3/uL (2.0-8.3); Neutrophils Percent Auto 68.6 % (45-73); Platelet Count 215 X10*3/uL (160-400); Red Blood Count 3.63 X10*6/uL (4.20-5.50); Red Cell Distribution Width 13.3 % (11.0-16.0); White Blood Count 10.3 X10*3/uL (4.8-10.8)
[2023-11-06 02:57] LABS: COVID-19 Test Negative (Negative); IDNOW Serial# 08D9AD1C; IDNOW Serial# 152EDE1D; Influenza A Negative (Negative); Influenza B2 Negative (Negative)
[2023-11-06 03:04] LABS: INTERNATIONAL NORM RATIO 0.9 (0.9-1.1); Prothrombin Time 10.9 SEC (11.1-13.3)
[2023-11-06 03:06] LABS: D Dimer High Sensitivity 240 NG/ML
[2023-11-06 03:07] LABS: Partial Thromboplastin Time 26.3 SEC (26.0-36.8)
[2023-11-06 03:12] LABS: Alanine Aminotransferase 8 U/L (0-31); Albumin Level 3.5 g/dL (3.5-5.0); Alkaline Phosphatase 84 U/L (39-117); Anion Gap 14 (12-20); Aspartate Amino Transferase 10 U/L (5-31); Bilirubin Total 0.3 mg/dL (0.0-1.0); Blood Urea Nitrogen 9 mg/dL (9-16); Calcium 9.4 mg/dL (8.4-10.2); Carbon Dioxide 22 mmol/L (22-29); Chloride 104 mmol/L (96-108); Creatinine Clr Calc Pharmacy 105.7; Estimated Glomerular Filt Rate > 60; Glucose Random 103 mg/dL (60-115); Lipase 18 U/L (8-78); Magnesium 1.8 mg/dL (1.6-2.6); Potassium 3.4 mmol/L (3.3-5.1); Sodium 137 mmol/L (135-145); Total Protein 6.7 g/dL (6.5-8.0)
[2023-11-06 03:13] LABS: Appearance Urine Cloudy; Color Urine Yellow; Glucose Urine UA Negative (Negative); Leukocyte Esterase Urine Negative (Negative); Nitrite Urine Negative (Negative); PH 6.5 (5.0-9.0); Urine Blood Negative (Negative); Urine Ketones Trace mg/dL (Negative); Urine Protein Negative (Neg-Trace)
[2023-11-06 04:13] VITALS: BP 114/60; PULSE 96; RESP 17; TEMP 36.8; O2SAT 97
[2023-11-06] MEDS: 0.9 % Sodium Chloride 1,000 ML 999 ML IV (04:43)
[2023-11-06] MEDS: iohexoL 350 MG/ML 100 ML INFUS..BTL 65 ML IV (04:47)
[2023-11-06 06:11] VITALS: BP 99/56; PULSE 101; RESP 16; TEMP 37.2; O2SAT 96
[2023-11-06 07:02] VITALS: BP 99/56; PULSE 101; RESP 16; TEMP 37.2; O2SAT 96
== END 2023-11-06 07:04 | disposition home or self-care (01) ==
PROVIDERS: Emergency Provider Emergency Medicine Emergency Medical Services
DX: O26.93 Pregnancy related conditions, unspecified, third trimester (principal); R06.02 Shortness of breath; I49.8 Other specified cardiac arrhythmias; Z11.52 Encounter for screening for COVID-19; Z79.899 Other long term (current) drug therapy; Z3A.34 34 weeks gestation of pregnancy
CPT/HCPCS: 36415; 71275; 80053; 81003; 83690; 83735; 85025; 85379; 85610; 85730; 87502; 87635; 93005; 96360; 99284; Q9967

== ENCOUNTER → 2023-11-06 02:18 | Outpatient (BNV) | payer OTHER, SELFPAY | PROVIDERS: Emergency Provider Emergency Medicine Emergency Medical Services; Visit Provider Internal Medicine | DX: R06.00 Dyspnea, unspecified (principal) | CPT/HCPCS: 93010 ==